=== PATIENT | male | born 1985 | race Two or more races ===

== ENCOUNTER → 2019-08-10 | Outpatient (CLI) | payer OTHER | END | disposition home or self-care (01) | LOC: Rad HDHVI 13:59 | PROVIDERS: ATTEND Internal Medicine Cardiovascular Disease | DX: I08.8 Other rheumatic multiple valve diseases (principal); R42 Dizziness and giddiness; R00.2 Palpitations; R07.89 Other chest pain | CPT/HCPCS: 93306 ==